=== PATIENT | female | born 1990 | race Asian ===

== ENCOUNTER 2022-05-14 09:56 | Emergency (ER) | payer OTHER ==
[~2022-05-14] VITALS: Ht 154.9 cm; Wt 49.9 kg
[2022-05-14] MEDS ORDERED: EPIPEN0.3 MG/0.3 IM ×2 (10:28→10:31)
== END 2022-05-14 11:12 | disposition home or self-care (01) ==
LOC: ER 09:56 → EDBD 09:56 → ER 11:12
DX: R10.9 Unspecified abdominal pain (principal); T50.3X5A Adverse effect of electrolytic, caloric and water-balance agents, initial encounter
CPT/HCPCS: J8540